=== PATIENT | female | born 1945 | race Caucasian/White ===

== ENCOUNTER → 2019-07-15 | Outpatient (CLI) | payer MEDICARE | LOC: RAD 10:42 | PROVIDERS: ATTEND Family Medicine | DX: Z12.31 Encounter for screening mammogram for malignant neoplasm of breast (principal) | CPT/HCPCS: 77067 ==

== ENCOUNTER → 2019-11-04 | Outpatient (CLI) | payer MEDICARE ==
--- NOTE | 2019-11-04 12:47 | Diagnostic Imaging Report ---
PROCEDURE: US right lower extremity venous. TECHNIQUE: Multiple Real-time grayscale images were obtained over the right lower extremity in various projections. Additional spectral analysis and color Doppler duplex images were also obtained. INDICATION: Lump in the lower right leg. FINDINGS: There is no evidence for right lower extremity DVT. The right lower extremity deep venous system shows normal compressibility with normal response to augmentation and Valsalva. There is a small subcutaneous fluid collection in the medial right calf measuring 2.4 x 0.6 x 1.6 cm. This corresponds to the palpable abnormality and may represent an intramuscular hematoma. No other abnormalities are seen. IMPRESSION: 1. No evidence of right lower extremity DVT. 2. Small right medial calf fluid collection, perhaps intramuscular hematoma. Dictated by: Dictated on workstation # [id number]
== END ==
LOC: RAD 11:39
PROVIDERS: ATTEND Nurse Practitioner Family
DX: R22.41 Localized swelling, mass and lump, right lower limb (principal); L04.0 Acute lymphadenitis of face, head and neck; K59.00 Constipation, unspecified; R03.0 Elevated blood-pressure reading, without diagnosis of hypertension; K21.9 Gastro-esophageal reflux disease without esophagitis; E78.5 Hyperlipidemia, unspecified; M54.5 Low back pain; F33.9 Major depressive disorder, recurrent, unspecified

== ENCOUNTER → 2020-02-20 | Outpatient (CLI) | payer MEDICARE ==
--- NOTE | 2020-02-20 14:19 | Diagnostic Imaging Report ---
PROCEDURE: MRI lumbar spine. TECHNIQUE: Multiplanar, multisequence MRI of the lumbar spine was performed without contrast. INDICATION: Low back pain. COMPARISON: No prior studies are available for comparison. FINDINGS: There is right convexity lumbar scoliotic curvature. Lordotic curvature is unremarkable. There is minimal retrolisthesis of L1 on L2 and L2 on L3 with minimal anterolisthesis of L4 on L5. The vertebral body heights are maintained. The marrow signal intensity is unremarkable. No geographic marrow lesion is seen. There is diffuse degenerative disc disease with disc space narrowing and disc desiccation as well as marginal osteophyte formation. The conus is unremarkable at the L1-L2 level. T12-L1: Central canal is patent. There is significant left neural foraminal stenosis due to broad-based left far lateral disc/osteophyte complex. Right neuroforamen is patent. L1-L2: Central canal is patent. Moderate left neural foraminal stenosis is seen due to broad-based disc/osteophyte complex. L2-L3: Hypertrophic facet changes are noted. There is ligamentous thickening with broad-based disc/osteophyte complex noted. Mild narrowing of the canal is noted. There is mild bilateral neural foraminal stenosis. L3-L4: Ligamentous thickening and facet changes with broad-based disc/osteophyte complex results in significant central canal stenosis. There is also significant bilateral lateral recess stenosis and moderate bilateral neural foraminal stenosis. L4-L5: Marked hypertrophic facet changes and ligamentous thickening is noted with broad-based disc/osteophyte complex. This results in severe trefoil stenosis of the central canal. There is also severe bilateral lateral recess stenosis. [id number] right neural foraminal stenosis. L5-S1: Hypertrophic facet changes are noted. There is broad-based disc/osteophyte complex indenting the ventral thecal sac. No canal narrowing is seen, but there is significant bilateral lateral recess stenosis. There is also mild bilateral neural foraminal stenosis. Paraspinous tissues are unremarkable. IMPRESSION: Lumbar spondylosis and scoliosis with multilevel central canal, lateral recess and neural foraminal stenosis described level by level above. This is most severe at L3-L4 and L4-L5 levels. No acute compression fracture is detected. Dictated by: Dictated on workstation # [id number]
--- NOTE | 2020-02-20 17:26 | Diagnostic Imaging Report ---
INDICATION: Back pain. COMPARISON: Lumbar spine MRI performed concurrently. TECHNIQUE: Multiplanar, multisequence MR imaging of the thoracic spine was performed. FINDINGS: No fracture or marrow replacing process. Normal kyphosis without spondylolisthesis. Thoracic cord is normal in size and signal. Specifically, there are no features of impingement of the thoracic cord. Paravertebral musculature is normal. There are multilevel disc bulges and protrusions of which the most advanced are detailed below. At T6-T7 there is a central disc protrusion causing mild spinal stenosis but does not contact the cord. No neuroforaminal narrowing. At T7-T8 there is left paracentral disc protrusion and osteophyte that abuts the ventral cord causing mild spinal stenosis but does not displace the cord. At T8-T9 there is a left paracentral disc protrusion which abuts the ventral cord causing mild spinal stenosis but no cord displacement. At T10-T11 there is a disc bulge with coexistent left paracentral disc protrusion resulting in [id number] spinal stenosis. However, there is no mass effect on the cord. IMPRESSION: 1. Multilevel degenerative disc disease resulting in areas of mild to moderate spinal stenosis. Some of the protrusions contact the cord but do not result in cord displacement. 2. No fracture. Dictated by: Dictated on workstation # [id number]
== END ==
LOC: RAD 12:30
DX: M48.07 Spinal stenosis, lumbosacral region (principal); M41.86 Other forms of scoliosis, lumbar region; M51.16 Intervertebral disc disorders with radiculopathy, lumbar region; M47.816 Spondylosis without myelopathy or radiculopathy, lumbar region; M51.14 Intervertebral disc disorders with radiculopathy, thoracic region; M48.04 Spinal stenosis, thoracic region
CPT/HCPCS: 72146; 72148

== ENCOUNTER → 2022-11-02 | Outpatient (CLI) | payer MEDICARE ==
--- NOTE | 2022-11-02 16:16 | Diagnostic Imaging Report ---
PROCEDURE: MRI lumbar spine without contrast. TECHNIQUE: Multiplanar, multisequence MRI of the lumbar spine was performed without contrast. INDICATION: Claudication. Spinal stenosis. COMPARISON: 02/20/2020. FINDINGS: 5 lumbar type vertebral bodies are visualized with the last well-formed disc space designated L5-S1. No acute fracture or dislocation is seen in the lumbar spine. Posterior fusion and laminectomy is visualized from L2 to L5. There is grade 1 anterolisthesis of L4 on L5. Modic type II endplate degenerative changes are present at the L1-L2 and L3-L4 levels. No suspicious focal osseous lesions. Vertebral body heights are well maintained. The conus terminates at the L1 level. No masses are seen associated with the conus or nerve roots of the cauda equina. No epidural collections are identified. Multilevel degenerative changes are seen in the lumbar spine with disc bulges, facet hypertrophy, and buckling of the ligamentum flavum. T12-L1: Broad-based disc bulge and facet hypertrophy results in mild spinal canal narrowing and no right and moderate left foraminal stenosis. L1-L2: Broad-based disc bulge, facet hypertrophy, and buckling of the ligamentum flavum results in mild to moderate spinal canal narrowing and moderate bilateral foraminal stenosis. L2-L3: Facet hypertrophy results in no significant spinal canal narrowing and moderate bilateral foraminal stenosis. L3-L4: Disc osteophyte complex and facet hypertrophy results in no significant spinal canal narrowing and mild to moderate bilateral foraminal narrowing. L4-L5: Broad-based disc bulge, facet hypertrophy, and buckling of the ligamentum flavum results in mild spinal canal narrowing and moderate bilateral foraminal stenosis. L5-S1: Broad-based disc bulge, facet hypertrophy, and buckling of the ligamentum flavum results in moderate spinal canal stenosis and moderate right and moderate to severe left foraminal stenosis. Paravertebral soft tissues are unremarkable. IMPRESSION: 1. No acute fracture or dislocation in the lumbar spine. 2. Multilevel degenerative changes in the lumbar spine, greatest at L1-L2, L4-L5 and L5-S1. 3. Grade 1 anterolisthesis of L4 on L5. 4. Modic type II endplate degenerative changes at the L1-L2 and L3-L4 levels 5. Posterior fusion and laminectomy from L2 to L5. Dictated by: Dictated on workstation # [id number]
== END ==
LOC: RAD 12:45
DX: M47.816 Spondylosis without myelopathy or radiculopathy, lumbar region (principal); M47.817 Spondylosis without myelopathy or radiculopathy, lumbosacral region; M43.16 Spondylolisthesis, lumbar region; M48.061 Spinal stenosis, lumbar region without neurogenic claudication; Z98.1 Arthrodesis status
CPT/HCPCS: 72148

== ENCOUNTER 2023-04-11 21:03 | Inpatient (IN) | payer MEDICARE ==
[~2023-04-11] VITALS: Ht 160 cm; Wt 64.0 kg
[2023-04-11 21:56] LABS: BASOPHILS # (AUTO) 0.1 10^3/uL (0.0-0.1); BASOPHILS % (AUTO) 0 % (0-10); EOSINOPHILS # (AUTO) 0.3 10^3/uL (0.0-0.3); EOSINOPHILS % (AUTO) 2 % (0-10); HEMATOCRIT 43 % (35-52); HEMOGLOBIN 14.9 g/dL (11.5-16.0); LYMPHOCYTES # (AUTO) 1.2 10^3/uL (1.0-4.0); LYMPHOCYTES % (AUTO) 9 % (12-44); MEAN CORPUSCULAR HEMOGLOBIN 30 pg (25-34); MEAN CORPUSCULAR HGB CONC 35 g/dL (32-36); MEAN CORPUSCULAR VOLUME 87 fL (80-99); MEAN PLATELET VOLUME 8.6 fL (9.0-12.2); MONOCYTES # (AUTO) 0.7 10^3/uL (0.0-1.0); MONOCYTES % (AUTO) 5 % (0-12); NEUTROPHILS # (AUTO) 10.8 10^3/uL (1.8-7.8); NEUTROPHILS % (AUTO) 83 % (42-75); PLATELET COUNT 383 10^3/uL (130-400)
[2023-04-11] MEDS ORDERED: ONDANSETRON INJECTION 4 MG/2 ML (SDV) IVP ONE (22:00)
[2023-04-11] MEDS ORDERED: LACTATED RINGERS 1,000 ML 1,000 ML IV ONE (22:00)
[2023-04-11] MEDS ORDERED: HYOSCYAMINE 0.125 MG TABLET SL ONE (22:00)
[2023-04-11 22:01] LABS: POTASSIUM 2.9 MMOL/L (3.6-5.0)
[2023-04-11 22:02] LABS: CALCIUM 9.5 MG/DL (8.5-10.1)
[2023-04-11 22:04] LABS: TOTAL PROTEIN 7.3 GM/DL (6.4-8.2)
[2023-04-11 22:06] LABS: BILIRUBIN,TOTAL 0.5 MG/DL (0.1-1.0)
[2023-04-11 22:07] LABS: CREATININE SERUM 0.67 MG/DL (0.60-1.30)
[2023-04-11 22:11] LABS: MAGNESIUM 1.8 MG/DL (1.6-2.4)
[2023-04-11] MEDS ORDERED: POTASSIUM CL 10MEQ/50ML IVPB 50 ML IV ONE (22:30)
[2023-04-11] MEDS ORDERED: NS IV 1000 ML 1,000 ML IV ONE (22:30)
[2023-04-11] MEDS ORDERED: morphine INJ 10 MG/ML 1ML (SYR OR VIAL) IVP STA (22:40)
--- NOTE | 2023-04-11 22:43 | ED Abdominal Pain ---
General Chief Complaint: Abdominal/GI Problems Stated Complaint: DIARRHEA Nursing Triage Note: PATIENT STATES SAT-SUN N/V, SINCE SAT DIARRHEA. PATIENT STATES WEAK. Source of Information: Patient Exam Limitations: No Limitations History of Present Illness Date Seen by Provider: Apr 11, 2023 Time Seen by Provider: 21:35 Initial Comments This 77-year-old woman presents to the emergency room with nausea, vomiting, diarrhea, and abdominal pain. Symptoms started April 07. She had 2 days of vomiting and now has nausea without vomiting. She has had persistent episodes of diarrhea accompanied by intense abdominal cramping. She also has tenderness diffusely in the abdomen and most intense in the left lower quadrant. She has been taking Imodium "with every bowel movement" and Emetrol [id number] to help control symptoms. She has Zofran at home but misunderstood the instructions and therefore has not been taking it. She has not been able to take some of her usual medications including her opioids for pain control, potassium supplement, Lasix, duloxetine, etc. She has history of COPD and uses supplemental oxygen at 3.5 L continuously. She is an active smoker despite her oxygen requirements. She has chronic back pain for which she takes oxycodone and morphine. Her family questioned C. difficile as a cause for her diarrhea, but she has not been on any recent antibiotics. She denies any hematochezia or hemoptysis. She is afebrile. No other household members have had similar symptoms. She recalls 1 prior episode while traveling in [place], but her travel companions have the same symptoms from food poisoning. Her primary care provider is Dr. Perez at [facility] in [place], [place]. Her preferred pharmacy is [facility]. She presently rates her pain as 3/10. She remains nauseated. Allergies and Home Medications Allergies Coded Allergies: povidone-iodine (Unverified Allergy, Severe, Anaphylaxis, 04/11/23) latex (Unverified Allergy, Unknown, 04/11/23) Patient Home Medication List Home Medication List Reviewed: Yes Atorvastatin Calcium (Atorvastatin Calcium) 40 Mg Tablet, 40 MG PO HS, (Reported) Entered as Reported by: RIA MATOS on 04/12/23 1048 Last Action: Held Carisoprodol (Carisoprodol) 350 Mg Tablet, 350 MG PO HS, (Reported) Entered as Reported by: RIA MATOS on 04/12/231047 Last Action: Continued Duloxetine HCl (Duloxetine HCl) 60 Mg Capsule.dr, 120 MG PO DAILY, (Reported) Entered as Reported by: RIA MATOS on 04/12/231047 Last Action: Converted Furosemide (Furosemide) 40 Mg Tablet, 40 MG PO DAILY, (Reported) Entered as Reported by: RIA MATOS on 04/12/231047 Last Action: Held Gabapentin (Gabapentin) 800 Mg Tablet, 800 MG PO TID, (Reported) Entered as Reported by: RIA MATOS on 04/12/231047 Last Action: Converted Ibuprofen (Ibuprofen) 200 Mg Tablet, 800 MG PO TID, (Reported) Entered as Reported by: RIA MATOS on 04/12/231047 Last Action: Continued Melatonin (Sleep Melatonin) 1 Mg Tab.chew, 3 MG PO HS, (Reported) Entered as Reported by: RIA MATOS on 04/12/231047 Last Action: Converted Multivitamin/Iron/Folic Acid (Centrum Women Tablet) 18 Mg Iron-400 Mcg Tablet, 1 EACH PO HS, (Reported) Entered as Reported by: RIA MATOS on 04/12/231047 Last Action: Held Mv-Mn/Vitc/Asbna/Glu/Sindy/Hc124 (Airborne Gummies) 333 Mg-1.7 Mg Tab.chew, 3 EACH PO HS, (Reported) Entered as Reported by: RIA MATOS on 04/12/231047 Last Action: Held Omeprazole (Omeprazole) 40 Mg Capsule.dr, 40 MG PO DAILY, (Reported) Entered as Reported by: RIA MATOS on 04/12/231047 Last Action: Converted Oxycodone HCl/Acetaminophen (Oxycodone-Acetaminophen 10-325) 10 Mg-325 Mg Tablet, 1 EA PO Q4H PRN for PAIN-MODERATE (5-7), (Reported) Entered as Reported by: RIA MATOS on 04/12/231047 Last Action: Continued Oxycodone Myristate (Xtampza ER) 13.5 Mg Cap.spr.12, 13.5 MG PO Q12H, (Reported) Entered as Reported by: RIA MATOS on 04/12/231047 Last Action: Converted Potassium Chloride (Potassium Chloride) 20 Meq Tab.er.prt, 20 MEQ PO BID, (Reported) Entered as Reported by: RIA MATOS on 04/12/231047 Last Action: Continued Vit C/Zinc Citrate/Elderberry (Elderberry Immune Health Gummy) 45 Mg-3.75 Mg-50 Mg Tab.chew, 2 EACH PO HS, (Reported) Entered as Reported by: RIA MATOS on 04/12/231047 Last Action: Held Review of Systems Review of Systems Constitutional: no symptoms reported EENTM: No Symptoms Reported Respiratory: See HPI Cardiovascular: No Symptoms Reported Gastrointestinal: See HPI Genitourinary: No Symptoms Reported Musculoskeletal: see HPI Skin: no symptoms reported Psychiatric/Neurological: No Symptoms Reported Endocrine: No Symptoms Reported Hematologic/Lymphatic: No Symptoms Reported Past Njstftf-Crsott-Dnjwwo Hx Patient Social History Tobacco Use?: Yes Use of E-Cig and/or Vaping dev: No Substance use?: No Alcohol Use?: No Past Medical History Surgery/Hospitalization HX: SPINE SURGERY, GALLBLADDER, Surgeries: Yes Gallbladder, Orthopedic (Back) Respiratory: Yes COPD (Uses O2 at 3.5 L/min nasal cannula) Cardiac: No Neurological: No : No Reproductive Disorders: No Genitourinary: No Gastrointestinal: No Musculoskeletal: Yes Chronic Back Pain Endocrine: No HEENT: No Cancer: No Psychosocial: No Integumentary: No Physical Exam Vital Signs Vital Signs - First Documented 04/11/23 21:30 Temp 37.3 Pulse 80 Resp 18 B/P (MAP) 134/71 (92) Pulse Ox 93 O2 Delivery Room Air Capillary Refill : Less Than 3 Seconds Height/Weight/BMI Height: '" Weight: lbs. oz. kg; 26.00 BMI Method: General Appearance: WD/WN, no apparent distress HEENT: normal ENT inspection, other (Oropharynx somewhat dry) Neck: normal inspection Respiratory: no respiratory distress, no accessory muscle use, crackles (faint in the bilateral bases) Cardiovascular: regular rate, rhythm, no edema, no murmur Gastrointestinal: normal bowel sounds, non tender, soft Extremities: normal inspection, no pedal edema Neurologic/Psychiatric: alert, normal mood/affect, oriented x 3 Skin: normal color, warm/dry Progress/Results/Core Measures Results/Orders Lab Results Laboratory Tests Test 04/11/23 00:34 04/11/23 21:34 04/11/23 21:39 Range/Units Urine Color YELLOW Urine Clarity CLEAR Urine pH 6.0 5-9 Urine Specific [place] <=1.005 1.016-1.022 Urine Protein NEGATIVE NEGATIVE Urine Glucose (UA) NEGATIVE NEGATIVE Urine Ketones 1+ H NEGATIVE Urine Nitrite NEGATIVE NEGATIVE Urine Bilirubin NEGATIVE NEGATIVE Urine Urobilinogen 0.2 < = 1.0 MG/DL Urine Leukocyte Esterase NEGATIVE NEGATIVE Urine RBC (Auto) NEGATIVE NEGATIVE Urine RBC NONE /HPF Urine WBC NONE /HPF Urine Squamous Epithelial Cells 0-2 /HPF Urine Crystals NONE /LPF Urine Bacteria TRACE /HPF Urine Casts NONE /LPF Urine Mucus NEGATIVE /LPF Urine Culture Indicated NO White Blood Count 13.0 H 4.3-11.0 10^3/uL Red Blood Count 4.93 3.80-5.11 10^6/uL Hemoglobin 14.9 11.5-16.0 g/dL Hematocrit 43 35-52 % Mean Corpuscular Volume 87 80-99 fL Mean Corpuscular Hemoglobin 30 25-34 pg Mean Corpuscular Hemoglobin Concent 35 32-36 g/dL Red Cell Distribution Width 13.5 10.0-14.5 % Platelet Count 383 130-400 10^3/uL Mean Platelet Volume 8.6 L 9.0-12.2 fL Immature Granulocyte % (Auto) 0 % Neutrophils (%) (Auto) 83 H 42-75 % Lymphocytes (%) (Auto) 9 L 12-44 % Monocytes (%) (Auto) 5 0-12 % Eosinophils (%) (Auto) 2 0-10 % Basophils (%) (Auto) 0 0-10 % Neutrophils # (Auto) 10.8 H 1.8-7.8 10^3/uL Lymphocytes # (Auto) 1.2 1.0-4.0 10^3/uL Monocytes # (Auto) 0.7 0.0-1.0 10^3/uL Eosinophils # (Auto) 0.3 0.0-0.3 10^3/uL Basophils # (Auto) 0.1 0.0-0.1 10^3/uL Immature Granulocyte # (Auto) 0.0 0.0-0.1 10^3/uL Sodium Level 132 L 135-145 MMOL/L Potassium Level 2.9 L 3.6-5.0 MMOL/L Chloride Level 99 98-107 MMOL/L Carbon Dioxide Level 20 L 21-32 MMOL/L Anion Gap 13 5-14 MMOL/L Blood Urea Nitrogen 6 L 7-18 MG/DL Creatinine 0.67 0.60-1.30 MG/DL Estimat Glomerular Filtration Rate 91 BUN/Creatinine Ratio 9 Glucose Level 107 H 70-105 MG/DL Calcium Level 9.5 8.5-10.1 MG/DL Corrected Calcium 9.5 8.5-10.1 MG/DL Magnesium Level 1.8 1.6-2.4 MG/DL Total Bilirubin 0.5 0.1-1.0 MG/DL Aspartate Amino Transf (AST/SGOT) 228 H 5-34 U/L Alanine Aminotransferase (ALT/SGPT) 247 H 0-55 U/L Alkaline Phosphatase 188 H 40-136 U/L C-Reactive Protein High Sensitivity 3.14 H 0.00-0.50 MG/DL Total Protein 7.3 6.4-8.2 GM/DL Albumin 4.0 3.2-4.5 GM/DL Lipase 213 H 8-78 U/L Prothrombin Time 12.6 12.2-14.7 SEC INR Comment 0.9 0.8-1.4 Hepatitis A IgM Antibody Non-Reactive Non-Reactive Hepatitis B Surface Antigen Non-Reactive Non-Reactive Hepatitis B Core IgM Antibody Non-Reactive Non-Reactive Hepatitis C Antibody Non-Reactive Non-Reactive Micro Results Microbiology 04/11/23 Fecal Leukocyte Stain - Final, Resulted 04/11/23 C. difficile GDH Antigen & Toxins - Final, Resulted 04/11/23 Stool Culture, Resulted Pending My Orders Orders - PAT ROMAN MD Cbc And Automated Diff (04/11/23 21:48) Comprehensive Metabolic Panel (04/11/23 21:48) Hs C Reactive Protein (04/11/23 21:48) Lipase (04/11/23 21:48) Ua Culture If Indicated (04/11/23 21:48) Ed Iv/Invasive Line Start (04/11/23 21:48) Lactated Ringers 1,000 Ml (Lactated Ring (04/11/23 22:00) Hyoscyamine Tablet (Hyoscyamine Tablet) (04/11/23 22:00) Ondansetron Injection (Ondansetron Inj (04/11/23 22:00) Magnesium (04/11/23 21:48) Stool Culture (04/11/23 21:51) Fecal Wbc (04/11/23 21:51) C Difficile Ag + Toxin A/B. (04/11/23 21:51) Potassium Cl 10meq/50ml Ivpb (Kcl 10 Meq (04/11/23 22:30) Ns Iv 1000 Ml (Ns Iv 1000 Ml) (04/11/23 22:30) Morphine Injection (Morphine Injection (04/11/23 22:40) Hepatitis Panel Acute (04/11/23 22:49) Protime With Inr (04/11/23 22:49) Ct Abdomen/Pelvis Wo (04/11/23 22:54) Potassium Cl 10meq/50ml Ivpb (Kcl 10 Meq (04/12/23 01:45) Morphine Injection (Morphine Injection (04/12/23 01:45) Ns Iv 500 Ml (Ns Iv 500 Ml) (04/12/23 01:39) Code/Resuscitation (04/12/23 01:48) Ed Admission (Communication) (04/12/23 01:48) Medications Given in ED Vital Signs/I&O 04/11/23 21:30 Temp 37.3 Pulse 80 Resp 18 B/P (MAP) 134/71 (92) Pulse Ox 93 O2 Delivery Room Air 04/12/23 00:00 Intake Total 1000 ml Balance 1000 ml Blood Pressure Mean: 92 Progress Progress Note #1: Time: 00:36 Progress Note Patient was interviewed and examined shortly after she was roomed. Symptoms were treated with Zofran and Levsin. IV hydration was provided with LR. Labs were obtained, reviewed, and interpreted by me. CBC was notable for leukocytosis of 13.0. CMP was notable for hypokalemia with potassium of 2.9. Renal function was unremarkable. AST was elevated at 228. ALT was elevated at 247. Alk phos was elevated at 188. Lipase was elevated at 213 suggesting pancreatitis. CRP was minimally elevated at 3.14. INR was 0.9 suggesting no long-term hepatic failure. Patient denied ever having any liver problems or acute hepatitis. Cause of her elevated transaminases is uncertain. She is surgically absent her gallbladder which was removed for cholelithiasis. It was noted she had an increase in duloxetine dose in January. She also takes atorvastatin. Drug effect is not excluded as a possible cause for her elevated transaminases. Acute hepatitis panel was added to the labs. Patient has been without her oral opioid pain medications this evening. Morphine 5 mg IV was administered. Some of her persistent symptoms now may be related to medication withdraw as she has not been able to take her medicines as usual. Urinalysis is pending at this time. CT abdomen and pelvis was obtained. Patient reports IV contrast dye allergy with an anaphylactic reaction. CT was obtained without contrast. I reviewed the CT images and observed no significant acute findings. There was atelectasis in the lung bases. Incidental finding of nephrolithiasis without obstruction was noted. Radiologist report is pending at this time. Potassium replacement has been initiated by IV route. Admission is anticipated pending CT read. Progress Note #2: Time: 01:[address] report from [facility] was reviewed. There were no additional acute findings beyond my interpretation. Patient will have received 2 L of IV fluid and 2 doses of IV potassium prior to transfer to the floor. I discussed CODE STATUS with the patient. She elects a DO NOT RESUSCITATE status. Patient was discussed with Dr. Sarah, hospitalist on-call, who accepts the admission. Diagnostic Imaging Diagonstic Imaging: CT Plain Films/CT/US/NM/MRI: abdomen, pelvis Comments NAME: ROB LONGORIA [facility] REC#: [id number] PT STATUS: ADM IN : 1945 PHYSICIAN: PAT ROMAN MD ADMIT DATE: 04/12/23 Signed Date of Exam:04/11/23 CT ABDOMEN/PELVIS WO PROCEDURE: CT abdomen and pelvis without contrast. TECHNIQUE: Multiple contiguous axial images were obtained through the abdomen and pelvis without the use of intravenous contrast. Auto Exposure Controls were utilized during the CT exam to meet ALARA standards for radiation dose reduction. INDICATION: Elevated liver enzymes, generalized abdominal pain There are some atelectasis in the dependent portions of both lung bases and in the medial segment right middle lobe. There is a 1 cm densely calcified round nodule in the dome of liver. There is otherwise unremarkable. The gallbladder surgically absent. Pancreas appears normal. Spleen is not enlarged. Gastroesophageal junction is normal. Adrenals are normal. There is a small calculus in lower pole the right kidney. There is a 3 cm cyst in the upper pole of left kidney. There is minimal aortic atherosclerosis. Urinary bladder is normal. Uterus is unremarkable. Adnexa appear normal. There is no intraperitoneal free air or free fluid. There is no evidence for appendicitis. There are postoperative changes from dorsal lumbar fusion from L2 through L5. IMPRESSION: Uncomplicated right nephrolithiasis. This is not mentioned on preliminary report. Retained fluid in the colon could be from diarrhea illness. Atelectasis in the dependent portions of the lungs. Dictated by: Dictated on workstation # [id number] Dict: 04/12/2345 Trans: 04/12/2353 TC [id number] Interpreted by: ALEJANDRA DALTON MD Electronically signed by: ALEJANDRA DALTON MD 04/12/2353 Departure Communication (Admissions) Time/Spoke to Admitting Phy: 01:30 Dr. Sarah Impression Primary Impression: Hypokalemia Additional Impressions: Nausea vomiting and diarrhea Elevated liver transaminase level Acute pancreatitis Qualified Codes: K85.90 - Acute pancreatitis without necrosis or infection, unspecified Disposition: ADMITTED INPATIENT Condition: Stable Admissions Decision to Admit Reason: Admit from ER (General) Decision to Admit/Date: Apr 12, 2023 Time/Decision to Admit Time: 01:30 Departure-Patient Inst. Referrals: NO,LOCAL PHYSICIAN (PCP/Family) Primary Care Physician PAT ROMAN MD Apr 11, 2023 22:43
[2023-04-11 23:20] LABS: INR 0.9 (0.8-1.4); PROTHROMBIN TIME PATIENT 12.6 SEC (12.2-14.7)
[2023-04-12] VITALS (8 sets, daily range): BP systolic 95–121; BP diastolic 55–68
[2023-04-12 00:51] LABS: BILIRUBIN,URINE NEGATIVE (NEGATIVE); CLARITY,URINE CLEAR; COLOR,URINE YELLOW; GLUCOSE, URINE (UA) NEGATIVE (NEGATIVE); KETONES,URINE 1+ (NEGATIVE); NITRITE,URINE NEGATIVE (NEGATIVE); PROTEIN,URINE NEGATIVE (NEGATIVE)
[2023-04-12 00:52] LABS: BACTERIA,URINE TRACE /HPF; LEUKOCYTE ESTERASE ,URINE NEGATIVE (NEGATIVE); SQUAMOUS EPITHELIAL CELL,UR 0-2 /HPF
[2023-04-12] MEDS ORDERED: NS IV 500 ML 500 ML IV STA (01:39)
[2023-04-12] MEDS ORDERED: POTASSIUM CL 10MEQ/50ML IVPB 50 ML IV ONE (01:45)
[2023-04-12] MEDS ORDERED: morphine INJ 4 MG/ML 1 ML (VIAL/SYRINGE) IVP ONE (01:45)
[2023-04-12] MEDS ORDERED: ONDANSETRON INJECTION 4 MG/2 ML (SDV) IV PRN (02:15)
[2023-04-12] MEDS ORDERED: HYOSCYAMINE 0.125 MG TABLET SL PRN (02:15)
[2023-04-12] MEDS: POTASSIUM CL 10MEQ/50ML IVPB 50 ML IV SCH ×3 (03:08→05:08)
[2023-04-12] MEDS ORDERED: RT-Ipratropium/Albuterol NEB 3 ML VIAL INH PRN (03:30)
[2023-04-12] MEDS ORDERED: NS IV 500 ML 500 ML ONE (05:00)
[2023-04-12 05:49] LABS: BASOPHILS # (AUTO) 0.1 10^3/uL (0.0-0.1); BASOPHILS % (AUTO) 1 % (0-10); EOSINOPHILS # (AUTO) 0.3 10^3/uL (0.0-0.3); EOSINOPHILS % (AUTO) 3 % (0-10); HEMATOCRIT 38 % (35-52); HEMOGLOBIN 12.8 g/dL (11.5-16.0); LYMPHOCYTES # (AUTO) 1.6 10^3/uL (1.0-4.0); LYMPHOCYTES % (AUTO) 18 % (12-44); MEAN CORPUSCULAR HEMOGLOBIN 30 pg (25-34); MEAN CORPUSCULAR HGB CONC 34 g/dL (32-36); MEAN CORPUSCULAR VOLUME 88 fL (80-99); MONOCYTES # (AUTO) 0.7 10^3/uL (0.0-1.0); MONOCYTES % (AUTO) 8 % (0-12); NEUTROPHILS # (AUTO) 6.1 10^3/uL (1.8-7.8); NEUTROPHILS % (AUTO) 70 % (42-75); PLATELET COUNT 329 10^3/uL (130-400); WHITE BLOOD COUNT 8.7 10^3/uL (4.3-11.0)
--- NOTE | 2023-04-12 05:55 | Diagnostic Imaging Report ---
PROCEDURE: CT abdomen and pelvis without contrast. TECHNIQUE: Multiple contiguous axial images were obtained through the abdomen and pelvis without the use of intravenous contrast. Auto Exposure Controls were utilized during the CT exam to meet ALARA standards for radiation dose reduction. INDICATION: Elevated liver enzymes, generalized abdominal pain There are some atelectasis in the dependent portions of both lung bases and in the medial segment right middle lobe. There is a 1 cm densely calcified round nodule in the dome of liver. There is otherwise unremarkable. The gallbladder surgically absent. Pancreas appears normal. Spleen is not enlarged. Gastroesophageal junction is normal. Adrenals are normal. There is a small calculus in lower pole the right kidney. There is a 3 cm cyst in the upper pole of left kidney. There is minimal aortic atherosclerosis. Urinary bladder is normal. Uterus is unremarkable. Adnexa appear normal. There is no intraperitoneal free air or free fluid. There is no evidence for appendicitis. There are postoperative changes from dorsal lumbar fusion from L2 through L5. IMPRESSION: Uncomplicated right nephrolithiasis. This is not mentioned on preliminary report. Retained fluid in the colon could be from diarrhea illness. Atelectasis in the dependent portions of the lungs. Dictated by: Dictated on workstation # [id number]
[2023-04-12 06:02] LABS: ALBUMIN 3.3 GM/DL (3.2-4.5)
[2023-04-12 06:03] LABS: POTASSIUM 3.2 MMOL/L (3.6-5.0)
[2023-04-12 06:04] LABS: CALCIUM 8.7 MG/DL (8.5-10.1)
[2023-04-12 06:05] LABS: TOTAL PROTEIN 5.9 GM/DL (6.4-8.2)
[2023-04-12 06:07] LABS: BILIRUBIN,TOTAL 0.4 MG/DL (0.1-1.0)
[2023-04-12 06:09] LABS: CREATININE SERUM 0.61 MG/DL (0.60-1.30)
[2023-04-12] MEDS: D5 1/2NS + KCL 40 MEQ/L 1000ML 1,000 ML IV SCH ×3 (06:09→22:57)
[2023-04-12 06:12] LABS: MAGNESIUM 1.7 MG/DL (1.6-2.4)
[2023-04-12] MEDS: morphine INJ 4 MG/ML 1 ML (VIAL/SYRINGE) IV PRN ×5 (08:19→22:31)
[2023-04-12] MEDS: RT-Ipratropium/Albuterol NEB 3 ML VIAL INH SCH ×3 (09:50→22:24)
[2023-04-12] MEDS ORDERED: LOPERAMIDE 2 MG CAPSULE PO PRN (10:15)
[2023-04-12] MEDS ORDERED: CHOLESTYRAMINE LITE 4 GM PACKET PO NR (10:30)
[2023-04-12] MEDS ORDERED: MULT-1060 PO ×2 (10:48)
[2023-04-12] MEDS ORDERED: CARI350T27 PO ×2 (10:48)
[2023-04-12] MEDS ORDERED: VIT1TAB.18 PO ×2 (10:48)
[2023-04-12] MEDS ORDERED: MV-M1TAB28 PO ×2 (10:48)
[2023-04-12] MEDS ORDERED: OXYC-556 PO ×2 (10:48)
[2023-04-12] MEDS ORDERED: IBUP-2473 PO ×2 (10:48)
[2023-04-12] MEDS ORDERED: ATOR40TA70 PO ×2 (10:48)
[2023-04-12] MEDS ORDERED: OXYC13.5 PO ×2 (10:48)
[2023-04-12] MEDS ORDERED: DULO60CA59 PO ×2 (10:48)
[2023-04-12] MEDS ORDERED: MELA1TAB PO ×2 (10:48)
[2023-04-12] MEDS ORDERED: OMEP40CA6 PO ×2 (10:48)
[2023-04-12] MEDS ORDERED: FURO40TA4 PO ×2 (10:48)
[2023-04-12] MEDS ORDERED: POTA-179 PO ×2 (10:48)
[2023-04-12] MEDS ORDERED: GABA800T10 PO ×2 (10:48)
--- NOTE | 2023-04-12 13:18 | History & Physical-Hospitalist ---
History of Present Illness HPI/Chief Complaint 77-year-old male past medical history of COPD who presented to the emergency department due to nausea vomiting diarrhea. She states that her symptoms started on April 07. She denies any sick contacts but the day before admission the she ate at [employer] was the only one to eat there. The next morning she started having significant nausea and vomiting and then later developed diarrhea. She now complains of nausea but has not had any further vomiting. She was admitted for further management. This morning she reports still having loose stools but has not had any more vomiting and is not really nauseous and would like to try to eat. Source: patient Date Seen 04/12/23 Time Seen by a Provider: 10:00 Attending Physician No,Local Physician PCP Admitting Physician: Kristopher Sarah MD Attending Physician: Kristopher Sarah MD Referring Physician Date of Admission Apr 12, 2023 at 01:55 Home Medications & Allergies Home Medications Reviewed patient Home Medication Reconciliation performed by pharmacy medication reconciliations microbiology quality control technician and/or nursing. Patients Allergies have been reviewed. Allergies Allergies Coded Allergies povidone-iodine (Unverified Allergy, Severe, Anaphylaxis, 04/11/23) latex (Unverified Allergy, Unknown, 04/11/23) Past Fnxplgc-Qmmhml-Uotqri Hx Patient Social History Employed/Student: retired Tobacco Use?: Yes Use of E-Cig and/or Vaping dev: No Substance use?: No Alcohol Use?: No Current Status Communicates: Verbally Primary Language: Kenyan Preferred Spoken Language: Kenyan Past Medical History Surgeries: Gallbladder, Orthopedic (Back) COPD (Uses O2 at 3.5 L/min nasal cannula) Chronic Back Pain Review of Systems Constitutional: see HPI Physical Exam Physical Exam Vital Signs Vital Signs - First Documented 04/11/23 04/12/23 21:30 01:58 Temp 37.3 Pulse 80 Resp 18 B/P (MAP) 134/71 (92) Pulse Ox 93 O2 Delivery Room Air O2 Flow Rate 2.00 Capillary Refill : Less Than 3 Seconds Height, Weight, BMI Height: '" Weight: lbs. oz. kg; 26.00 BMI Method: General Appearance: No Apparent Distress, WD/WN, Thin Respiratory: Lungs Clear, No Respiratory Distress Cardiovascular: Regular Rate, Rhythm, No Murmur Gastrointestinal: Normal Bowel Sounds, Soft Extremity: No Calf Tenderness, No Pedal Edema Neurologic/Psychiatric: Alert, Oriented x3 Results Results/Procedures Labs Laboratory Tests 04/11/23 21:34 04/12/23 05:03 Patient resulted labs reviewed. Imaging: Reviewed Imaging Report Imaging [facility]. [place], [place] NAME: ROB LONGORIA [facility] REC#: [id number] PT STATUS: ADM IN : 1945 PHYSICIAN: PAT ROMAN MD ADMIT DATE: 04/12/23 Signed Date of Exam:04/11/23 CT ABDOMEN/PELVIS WO PROCEDURE: CT abdomen and pelvis without contrast. TECHNIQUE: Multiple contiguous axial images were obtained through the abdomen and pelvis without the use of intravenous contrast. Auto Exposure Controls were utilized during the CT exam to meet ALARA standards for radiation dose reduction. INDICATION: Elevated liver enzymes, generalized abdominal pain There are some atelectasis in the dependent portions of both lung bases and in the medial segment right middle lobe. There is a 1 cm densely calcified round nodule in the dome of liver. There is otherwise unremarkable. The gallbladder surgically absent. Pancreas appears normal. Spleen is not enlarged. Gastroesophageal junction is normal. Adrenals are normal. There is a small calculus in lower pole the right kidney. There is a 3 cm cyst in the upper pole of left kidney. There is minimal aortic atherosclerosis. Urinary bladder is normal. Uterus is unremarkable. Adnexa appear normal. There is no intraperitoneal free air or free fluid. There is no evidence for appendicitis. There are postoperative changes from dorsal lumbar fusion from L2 through L5. IMPRESSION: Uncomplicated right nephrolithiasis. This is not mentioned on preliminary report. Retained fluid in the colon could be from diarrhea illness. Atelectasis in the dependent portions of the lungs. Dictated by: Dictated on workstation # [id number] Dict: 04/12/23 0545 Trans: 04/12/23552 TCB [id number] Interpreted by: ALEJANDRA DALTON MD Electronically signed by: ALEJANDRA DALTON MD 04/12/2353 Assessment/Plan Admission Diagnosis Gastroenteritis Admission Status: Observation Assessment and Plan Gastroenteritis Nausea and vomiting Hypokalemia Transaminitis Continue supportive care C diff negative, await stool culture Continue IVF Advance diet per her request Replace K per protocol Liver enzymes improving Hepatitis panel pending COPD on 3.5lpm at baseline MAT protocol Home meds DVT ppx: REN Khan MD Apr 12, 2023 13:18
[2023-04-12] MEDS ORDERED: NS IV 500 ML 500 ML IV PRN (13:30)
[2023-04-12] MEDS ORDERED: OXYCODONE MYRISTATE 13.5 MG PO SCH (13:30)
[2023-04-12] MEDS ORDERED: ENOXAPARIN 40 MG/0.4 ML SYRINGE SQ SCH (14:00)
[2023-04-12 14:19] LABS: HEPATITIS C ANTIBODY C Non-Reactive (Non-Reactive)
[2023-04-12] MEDS: POTASSIUM CHLORIDE 20 MEQ TABLET PO SCH (18:20)
[2023-04-12] MEDS: IBUPROFEN 800 MG TABLET PO SCH (18:20)
[2023-04-12] MEDS: oxyCODONE/ACETAMINOPHEN 10/325MG TABLET PO PRN (20:29)
[2023-04-12] MEDS: GABAPENTIN 400 MG CAPSULE PO SCH (20:30)
[2023-04-12] MEDS ORDERED: IBUPROFEN 200 MG TABLET PO SCH (21:00)
[2023-04-12] MEDS ORDERED: MELATONIN 3 MG PO SCH (21:00)
[2023-04-12] MEDS ORDERED: MELATONIN 3 MG TABLET PO SCH (21:00)
[2023-04-12] MEDS ORDERED: CARISOPRODOL 350 MG TABLET PO SCH (21:00)
[2023-04-12] MEDS ORDERED: NON-FORMULARY MEDICATION 1 EA EA (Gabapentin 800 MG) PO SCH (21:00)
[2023-04-13 03:34] VITALS: BP 114/70
[2023-04-13] MEDS: RT-Ipratropium/Albuterol NEB 3 ML VIAL INH SCH ×2 (03:44→09:30)
[2023-04-13] MEDS: morphine INJ 4 MG/ML 1 ML (VIAL/SYRINGE) IV PRN (03:45)
[2023-04-13 05:04] LABS: HEMATOCRIT 35 % (35-52); HEMOGLOBIN 11.8 g/dL (11.5-16.0); MEAN CORPUSCULAR HEMOGLOBIN 31 pg (25-34); MEAN CORPUSCULAR HGB CONC 34 g/dL (32-36); MEAN CORPUSCULAR VOLUME 90 fL (80-99); MEAN PLATELET VOLUME 8.9 fL (9.0-12.2); PLATELET COUNT 286 10^3/uL (130-400); WHITE BLOOD COUNT 8.9 10^3/uL (4.3-11.0)
[2023-04-13 05:19] LABS: POTASSIUM 3.8 MMOL/L (3.6-5.0)
[2023-04-13 05:20] LABS: CALCIUM 8.8 MG/DL (8.5-10.1)
[2023-04-13 05:24] LABS: CREATININE SERUM 0.64 MG/DL (0.60-1.30)
[2023-04-13 05:26] LABS: MAGNESIUM 1.6 MG/DL (1.6-2.4)
[2023-04-13] MEDS: MAGNESIUM 1 GM/100 ML IVPB 100 ML IV SCH ×4 (05:48→09:02)
[2023-04-13] MEDS ORDERED: MAGNESIUM 1 GM/100 ML IVPB 100 ML IV SCH (06:00)
[2023-04-13] MEDS ORDERED: POTASSIUM BICARB 20 MEQ effervescent TABLET PO SCH (06:00)
[2023-04-13] MEDS ORDERED: POTASSIUM CL 10MEQ/50ML IVPB 50 ML IV SCH (06:00)
[2023-04-13] MEDS ORDERED: POTASSIUM CHLORIDE 20 MEQ TABLET PO SCH (06:00)
[2023-04-13] MEDS ORDERED: POTASSIUM CHLORIDE 20 MEQ TABLET PO ONE (06:00)
[2023-04-13] MEDS: D5 1/2NS + KCL 40 MEQ/L 1000ML 1,000 ML IV SCH (06:39)
[2023-04-13] MEDS: GABAPENTIN 400 MG CAPSULE PO SCH ×2 (08:15→13:45)
[2023-04-13] MEDS: oxyCODONE/ACETAMINOPHEN 10/325MG TABLET PO PRN ×2 (08:16→13:45)
[2023-04-13] MEDS: POTASSIUM CHLORIDE 20 MEQ TABLET PO SCH (08:16)
[2023-04-13] MEDS: IBUPROFEN 800 MG TABLET PO SCH ×2 (08:17→13:45)
[2023-04-13 08:36] VITALS: BP 100/61
[2023-04-13] MEDS ORDERED: NON-FORMULARY MEDICATION 1 EA EA (Duloxetine HCl 120 MG) PO SCH (09:00)
[2023-04-13] MEDS ORDERED: DULoxetine 30 MG CAPSULE PO SCH (09:00)
[2023-04-13] MEDS ORDERED: NON-FORMULARY MEDICATION 1 EA EA (Omeprazole 40 MG) PO SCH (09:00)
[2023-04-13] MEDS ORDERED: PANTOPRAZOLE 40 MG TABLET PO SCH (09:00)
[2023-04-13] MEDS ORDERED: CHOLESTYRAMINE LITE 4 GM PACKET PO SCH (10:00)
--- NOTE | 2023-04-13 10:52 | Discharge Inst-Simple/Standard ---
Discharge Inst-Standard Patient Instructions/Follow Up Plan of Care/Instructions/FU: Please continue to take your medications as written. Please follow up with your primary care doctor to follow up this hospital stay. Activity as Tolerated: Yes Discharge Diet: Low Fat/Low Cholesterol Return to The Hospital For: Chest pain, shortness of breath, fever, weakness, if you feel you are getting worse. REN BOGGS MD Apr 13, 2023 10:52
[2023-04-13 12:11] VITALS: BP 105/66
[2023-04-13] MEDS ORDERED: CHOL4PAC3 PO ×2 (12:52)
--- NOTE | 2023-04-13 13:02 | Discharge Summary ---
Diagnosis/Chief Complaint Date of Admission Apr 12, 2023 at 01:55 Date of Discharge Discharge Date: Apr 13, 2023 Admission Diagnosis Gastroenteritis Primary Care No,Local Physician Discharge Summary Discharge Physical Exam Allergies: Coded Allergies: povidone-iodine (Unverified Allergy, Severe, Anaphylaxis, 04/11/23) latex (Unverified Allergy, Unknown, 04/11/23) Vitals & I&Os Vital Signs Date Time Temp Pulse Resp B/P (MAP) Pulse Ox O2 Delivery O2 Flow Rate FiO2 04/13/23 12:24 62 04/13/23 12:11 36.8 20 105/66 (79) 94 Nasal Cannula 3.50 Hospital Course Labs (last 24 hrs) Laboratory Tests 04/13/23 04:48: White Blood Count 8.9, Red Blood Count 3.87, Hemoglobin 11.8, Hematocrit 35, Mean Corpuscular Volume 90, Mean Corpuscular Hemoglobin 31, Mean Corpuscular Hem oglobin Concent 34, Red Cell Distribution Width 14.1, Platelet Count 286, Mean Platelet Volume 8.9L, Sodium Level 135, Potassium Level 3.8, Chloride Level 112H , Carbon Dioxide Level 17L, Anion Gap 6, Blood Urea Nitrogen 4L, Creatinine 0.64, Estimat Glomerular Filtration Rate 92, BUN/Creatinine Ratio 6, Glucose Level 134H, Calcium Level 8.8, Magnesium Level 1.6 Microbiology 04/11/23 Fecal Leukocyte Stain - Final, Resulted 04/11/23 C. difficile GDH Antigen & Toxins - Final, Resulted 04/11/23 Stool Culture, Resulted Pending Patient resulted labs reviewed. Imaging: Reviewed Imaging Report Discharge Home Medications: Active Scripts Active Prevalite Packet (Cholestyramine/Aspartame) 4 Gram Powd.pack 4 Gm PO DAILY@1000 Reported Centrum Women Tablet (Multivitamin/Iron/Folic Acid) 18 Mg Iron-400 Mcg Tablet 1 Each PO HS Sleep Melatonin (Melatonin) 1 Mg Tab.chew 3 Mg PO HS TAKES 3 CHEWABLE TABLETS Elderberry Xamarin Health Gummy (Vit C/Zinc Citrate/Elderberry) 45 Mg-3.75 Mg-50 Mg Tab.chew 2 Each PO HS TAKES 2 GUMMIES Airborne Gummies (Mv-Mn/Vitc/Asbna/Glu/Sindy/Hc124) 333 Mg-1.7 Mg Tab.chew 3 Each PO HS TAKES 3 GUMMIES Ibuprofen 200 Mg Tablet 800 Mg PO TID TAKES 4 (200MG) TABLETS Omeprazole 40 Mg Capsule.dr 40 Mg PO DAILY Atorvastatin Calcium 40 Mg Tablet 40 Mg PO HS Duloxetine HCl 60 Mg Capsule.dr 120 Mg PO DAILY TAKES 2 (60MG) CAPSULES Potassium Chloride 20 Meq Tab.er.prt 20 Meq PO BID Furosemide 40 Mg Tablet 40 Mg PO DAILY Oxycodone-Acetaminophen 10-325 (Oxycodone HCl/Acetaminophen) 10 Mg-325 Mg Tablet 1 Ea PO Q4H PRN Xtampza ER (Oxycodone Myristate) 13.5 Mg Cap.spr.12 13.5 Mg PO Q12H Gabapentin 800 Mg Tablet 800 Mg PO TID Carisoprodol 350 Mg Tablet 350 Mg PO HS Instructions to patient/family Please see electronic discharge instructions given to patient. REN BOGGS MD Apr 13, 2023 13:01
[2023-04-13 13:55] VITALS: BP 105/66
--- NOTE | 2023-04-13 19:54 | Physician Query-Final Dx ---
Final Diagnosis Give Final Diagnosis Please give Final Diagnosis The medical record reflects the following clinical scenario: The patient, in the setting of History/Risk factors, Admitted with "nausea vomiting diarrhea." Clinical Findings (list no more than 2), CT finding "pancreas appears normal" Lipase on admission [address] scan, IV Fluids: LR, Morphine IV, Question: Do you agree with the impression of acute pancreatitis per Adina Melendez? Yes; will document Acute Pancreatitis present on admission in the Progress Notes No; will continue current documentation in the Progress Notes Other; will document explanation of clinical findings Clinically undetermined; no explanation for clinical findings Please clarify and document your clinical opinion in the Progress Notes and Discharge Summary including the definitive and/or presumptive diagnosis, (suspected or probable), related to the above clinical findings. Please include clinical findings supporting your diagnosis. In responding to this query, please exercise your independent professional judgment. The purpose of this communication is to more accurately reflect the complexity of your patients condition. The fact that a question is asked does not imply that any particular answer is desired or expected. Thank you for timely response to this clarification. Dina Bailey, MSN, RN Clinical Retention Manager [phone] DINA BAILEY Apr 13, 2023 19:54
--- NOTE | 2023-04-20 01:03 | Physician Query Clarification ---
PQ-Uncertain Diagnosis Admission/Discharge Admission Date: Apr 12, 2023 at 01:55 Discharge Date: Apr 13, 2023 at 14:02 The medical record reflects the following clinical scenario: History/Risk Factors: A 77 years old female patient admitted with nausea vomiting diarrhea found to have gastroenteritis, acute pancreatitis was d ocumented in medical record. Clinical Findings: Lipase on admission 213 then 168, CT findings pancreas appear normal. Treatment: IV fluids, Morphine IV. Question: Is acute pancreatitis a clinically valid diagnosis? Acute pancreatitis was documented in the ER provider notes, 04/13 with no further documentation in the medical record. Please document a response in Progress Note or Discharge Summary. 1. Yes, clinically valid, condition resolved. 2. No, condition ruled out. 3. Other, with explanation of clinical findings. 4. Undetermined, no explanation for clinical findings. PHYSICIAN RESPONSE Diagnosis clinically valid: Yes, Conditon resolved In responding to this query, please exercise your independent professional judgment. The purpose of this communication is to more accurately reflect the complexity of your patients condition. The fact that a question is asked does not imply that any particular answer is desired or expected. Thank you for your timely response to this clarification. Requestors name: [ ] Phone # [ ] THIS PHYSICIAN QUERY FORM IS A PERMANENT PART OF THE MEDICAL RECORD SÁNCHEZ HOFFMAN Apr 20, 2023 01:03 GILDA GUEVARA MD Apr 20, 2023 08:00
== END 2023-04-13 14:02 | disposition home or self-care (01) | DRG 391 ==
LOC: EDUNIT# 21:03 → ER 21:06 → 4TH 04-12 01:55
PROVIDERS: ADMIT Internal Medicine; ATTEND Internal Medicine
DX: K52.9 Noninfective gastroenteritis and colitis, unspecified (principal); K85.90 Acute pancreatitis without necrosis or infection, unspecified; E87.6 Hypokalemia; J44.9 Chronic obstructive pulmonary disease, unspecified; G89.29 Other chronic pain; M54.9 Dorsalgia, unspecified; Z66 Do not resuscitate
CPT/HCPCS: 36415; 74176; 80048; 80053; 80074; 81000; 83690; 83735; 85025; 85027; 85610; 86141; 87015; 87045; 87046; 87324; 87449; 87899; 89055; 94640; 94760; 94761; 96361; 96374; 96375; 96376

== ENCOUNTER → 2023-04-20 | Outpatient (CLI) | payer MEDICARE ==
[~2023-04-20] MED LIST: ATOR40TA70 PO; CARI350T27 PO; CHOL4PAC3 PO; DULO60CA59 PO; FURO40TA4 PO; GABA800T10 PO; IBUP-2473 PO; MELA1TAB PO; MULT-1060 PO; MV-M1TAB28 PO; OMEP40CA6 PO; OXYC-556 PO; OXYC13.5 PO; POTA-179 PO; VIT1TAB.18 PO
[2023-04-20 15:07] LABS: HEMATOCRIT 42 % (35-52); HEMOGLOBIN 14.3 g/dL (11.5-16.0); MEAN CORPUSCULAR HEMOGLOBIN 31 pg (25-34); MEAN CORPUSCULAR HGB CONC 34 g/dL (32-36); MEAN CORPUSCULAR VOLUME 90 fL (80-99); MEAN PLATELET VOLUME 8.5 fL (9.0-12.2); PLATELET COUNT 422 10^3/uL (130-400); WHITE BLOOD COUNT 11.1 10^3/uL (4.3-11.0)
[2023-04-20 15:26] LABS: POTASSIUM 5.1 MMOL/L (3.6-5.0)
[2023-04-20 15:27] LABS: CALCIUM 9.7 MG/DL (8.5-10.1)
[2023-04-20 15:32] LABS: CREATININE SERUM 0.73 MG/DL (0.60-1.30)
== END ==
LOC: LAB 14:49
DX: E87.6 Hypokalemia (principal); R19.7 Diarrhea, unspecified
CPT/HCPCS: 36415; 80048; 85027